=== PATIENT | male | born 1990 | race Hispanic/Latino ===

== ENCOUNTER 2019-09-09 15:50 | Emergency (ER) | payer SELFPAY ==
[2019-09-09] MEDS ORDERED: ACETAMINOPHEN EXTRA STRENGTH 500 MG TABLET ONE (16:45)
[2019-09-09] MEDS ORDERED: TETANUS/DIPHTHERIA TOXOID [ADULT] 0.5 ML VIAL IM ONE (16:46)
[2019-09-09] MEDS ORDERED: OCTYL 2-CYANOACRYLATE 1 EACH TP ONE (17:57)
== END 2019-09-09 18:15 | disposition home or self-care (01) ==
LOC: EDH 15:50
DX: S91.211A Laceration without foreign body of right great toe with damage to nail, initial encounter (principal); Z72.0 Tobacco use; W25.XXXA Contact with sharp glass, initial encounter; Y93.89 Activity, other specified; Y92.096 Garden or yard of other non-institutional residence as the place of occurrence of the external cause; Y99.8 Other external cause status
CPT/HCPCS: 12001; 73130; 90471; 90714

== ENCOUNTER 2021-08-11 20:29 | Emergency (ER) | payer BC, OTHER ==
[~2021-08-11] VITALS: Ht 172.7 cm; Wt 90.7 kg
[2021-08-11 20:33] VITALS: BP 123/82
[2021-08-11] MEDS ORDERED: SOLU-MEDROL 125MG VIAL ONE (20:46)
[2021-08-11] MEDS ORDERED: IPRATROPIUM/ALBUTEROL SULFATE 3 ML SOLUTION IH ONE (20:51)
[2021-08-11 20:59] LABS: BASOPHILS % (AUTO) 1.2 % (0.0-5.0); EOSINOPHILS % (AUTO) 2.8 % (0.0-8.0); LYMPHOCYTES % (AUTO) 46.2 % (21.0-51.0); MEAN CORPUSCULAR HEMOGLOBIN 32.8 pg (27.0-33.0); MEAN CORPUSCULAR HGB CONC 34.8 g/dL (32.0-36.0); MEAN CORPUSCULAR VOLUME 94.4 fL (79-99); MONOCYTES % (AUTO) 7.8 % (3.0-13.0); NEUTROPHILS % (AUTO) 41.9 % (40.0-77.0); PLATELET COUNT (AUTO) 248 K/uL (130-400); RED BLOOD CELL COUNT(AUTO) 4.45 MIL/uL (4.50-6.20); RED CELL DISTRIBUTION WIDTH 13.2 % (11.0-15.5); WHITE BLOOD COUNT (AUTO) 7.6 K/uL (4.8-10.8)
[2021-08-11] MEDS ORDERED: SOLU-MEDROL 125MG VIAL IVP SCH (21:00)
[2021-08-11] MEDS ORDERED: ALBUTEROL 0.083% 2.5 MG/3 ML INH IH SCH (21:00)
[2021-08-11] MEDS ORDERED: IPRATROPIUM/ALBUTEROL SULFATE 3 ML SOLUTION IH SCH (21:00)
[2021-08-11 21:07] LABS: CREATININE 0.9 mg/dL (0.5-1.5); POTASSIUM 3.5 mmol/L (3.5-5.1)
[2021-08-11 21:12] LABS: ALBUMIN 3.6 g/dL (3.5-5.0); BILIRUBIN,TOTAL 0.2 mg/dL (0.2-1.0); TOTAL PROTEIN, SERUM 7.3 g/dL (6.0-8.3)
[2021-08-11] MEDS ORDERED: CEFTRIAXONE 1G VIAL IVP ONE (21:30)
[2021-08-11] MEDS ORDERED: AZITHROMYCIN 250 MG TABLET PO ONE ×2 (21:30→21:34)
[2021-08-11] MEDS ORDERED: CEFTRIAXONE 1G VIAL ONE (21:33)
[2021-08-11] MEDS ORDERED: ALBU8.5H8 IH (21:35)
[2021-08-11] MEDS ORDERED: D-ME1POW16 PO (21:35)
[2021-08-11] MEDS ORDERED: AMOX1TAB16 PO (21:35)
== END 2021-08-11 21:46 | disposition home or self-care (01) ==
LOC: EDH 20:29
DX: J98.4 Other disorders of lung (principal); R06.00 Dyspnea, unspecified; Z20.822 Contact with and (suspected) exposure to COVID-19; J45.909 Unspecified asthma, uncomplicated; Z79.52 Long term (current) use of systemic steroids
CPT/HCPCS: 36415; 71045; 80053; 85025; 87635; 87804 ×2; 94640 ×2; 96374; 96375; 99284; C9803; J0696; J2930

== ENCOUNTER 2021-12-08 15:48 | Emergency (ER) | payer BC ==
[~2021-12-08] VITALS: Ht 172.7 cm; Wt 90.7 kg
[~2021-12-08 15:48] MED LIST: ALBU8.5H8 IH; AMOX1TAB16 PO; D-ME1POW16 PO
[2021-12-08] MEDS ORDERED: M.V.I. IV [ADULT] 10 ML, FOLIC ACID 1 MG, THIAMINE HCL 100 MG in 0.9%NACL 1000ML 1,000 ML IV SCH (16:00)
[2021-12-08] MEDS ORDERED: 0.9%NACL 1000ML 1,000 ML IV SCH (16:00)
[2021-12-08] MEDS ORDERED: THIAMINE HCL 100 MG/ML 2ML VIAL IVP SCH (16:00)
[2021-12-08] MEDS ORDERED: HYDROXYZINE 25 MG TABLET PO ONE (16:00)
[2021-12-08 16:20] LABS: BASOPHILS % (AUTO) 0.8 % (0.0-5.0); EOSINOPHILS % (AUTO) 1.8 % (0.0-8.0); HEMATOCRIT 42.4 % (42-54); LYMPHOCYTES % (AUTO) 49.1 % (21.0-51.0); MEAN CORPUSCULAR HEMOGLOBIN 32.3 pg (27.0-33.0); MEAN CORPUSCULAR HGB CONC 35.6 g/dL (32.0-36.0); MEAN CORPUSCULAR VOLUME 90.6 fL (79-99); MONOCYTES % (AUTO) 8.6 % (3.0-13.0); NEUTROPHILS % (AUTO) 39.4 % (40.0-77.0); PLATELET COUNT (AUTO) 303 K/uL (130-400); RED BLOOD CELL COUNT(AUTO) 4.68 MIL/uL (4.50-6.20); RED CELL DISTRIBUTION WIDTH 12.8 % (11.0-15.5); WHITE BLOOD COUNT (AUTO) 7.6 K/uL (4.8-10.8)
[2021-12-08 16:21] LABS: APPEARANCE,URINE CLEAR (CLEAR); BILIRUBIN,URINE NEGATIVE (NEGATIVE); COLOR,URINE YELLOW (YELLOW); GLUCOSE, URINE (UA) NEGATIVE (NEGATIVE); KETONES,URINE NEGATIVE (NEGATIVE); LEUKOCYTE ESTERASE ,URINE NEGATIVE (NEGATIVE); NITRATE,URINE NEGATIVE (NEGATIVE); OCCULT BLOOD,URINE NEGATIVE (NEGATIVE); PROTEIN,URINE NEGATIVE (NEGATIVE); UROBILINOGEN,URINE 0.2 mg/dL (0.2-1.0)
[2021-12-08 16:27] LABS: AMPHET/METH SCREEN,URINE NEGATIVE (NEGATIVE); BARBITURATE SCREEN, URINE NEGATIVE (NEGATIVE); BENZODIAZEPINES SCREEN,URINE NEGATIVE (NEGATIVE); CANNABINOID SCREEN,URINE POSITIVE (NEGATIVE); COCAINE SCREEN,URINE POSITIVE (NEGATIVE)
[2021-12-08 16:28] LABS: PHENCYCLIDINE SCREEN,URINE NEGATIVE (NEGATIVE)
[2021-12-08 16:44] LABS: ALBUMIN 3.6 g/dL (3.5-5.0); CREATININE 0.8 mg/dL (0.5-1.5); POTASSIUM 3.6 mmol/L (3.5-5.1)
[2021-12-08] MEDS ORDERED: LORAZEPAM 1 MG TABLET PO ONE (17:00)
[2021-12-08 18:09] VITALS: BP 128/67
== END 2021-12-08 18:29 | disposition home or self-care (01) ==
LOC: EDH 15:48
DX: E86.0 Dehydration (principal); F10.129 Alcohol abuse with intoxication, unspecified; F14.10 Cocaine abuse, uncomplicated; F12.10 Cannabis abuse, uncomplicated; F41.9 Anxiety disorder, unspecified; J45.909 Unspecified asthma, uncomplicated; Z79.899 Other long term (current) drug therapy; Y90.8 Blood alcohol level of 240 mg/100 ml or more
CPT/HCPCS: 99284; 96365; 96375; 84484; 80053; 80305; 85025; 36415; 81003; J7030 ×2; J3411 ×2; J3490

== ENCOUNTER 2023-09-06 09:52 | Emergency (ER) | payer OTHER, BC ==
[~2023-09-06] VITALS: Ht 175.3 cm; Wt 90.7 kg
[2023-09-06] MEDS: CYCLOBENZAPRINE HCL 10 MG TABLET PO ONE (10:23)
[2023-09-06] MEDS: KETOROLAC 60 MG VIAL (30MG/ML) IM ONE (10:24)
[2023-09-06 11:16] LABS: APPEARANCE,URINE CLEAR (CLEAR); BILIRUBIN,URINE NEGATIVE (NEGATIVE); COLOR,URINE LIGHT-YELLOW (YELLOW); GLUCOSE, URINE (UA) NEGATIVE (NEGATIVE); KETONES,URINE NEGATIVE (NEGATIVE); LEUKOCYTE ESTERASE ,URINE NEGATIVE Leu/uL (NEGATIVE); NITRATE,URINE NEGATIVE (NEGATIVE); OCCULT BLOOD,URINE NEGATIVE (NEGATIVE); PROTEIN,URINE 30 mg/dL (NEGATIVE); UROBILINOGEN,URINE 0.2 mg/dL (0.2-1.0)
[2023-09-06 11:17] LABS: ADD UA MICROSCOPIC YES
[2023-09-06 11:40] LABS: BACTERIA,URINE None Seen /HPF (None Seen); RBC,URINE None Seen /HPF (0-1); SQUAMOUS EPITHELIAL CELL,UR 0-2 /HPF (0-2); WBC,URINE None Seen /HPF (0-1)
[2023-09-06] MEDS ORDERED: IBUP-2070 PO (11:41)
[2023-09-06 11:48] VITALS: BP 139/86; PULSE 81; RESP 19; O2SAT 98
== END 2023-09-06 11:49 | disposition home or self-care (01) ==
LOC: EDH 09:52 → EEVIPCON 09:52 → EDH 11:49
DX: G89.29 Other chronic pain (principal); M54.9 Dorsalgia, unspecified; F41.9 Anxiety disorder, unspecified; J45.909 Unspecified asthma, uncomplicated; I10 Essential (primary) hypertension
CPT/HCPCS: 99284; 81001; 72110; 96372; J1885

== ENCOUNTER 2023-12-06 11:48 | Emergency (ER) | payer BC, OTHER ==
[~2023-12-06] VITALS: Ht 170.2 cm; Wt 90.7 kg
[~2023-12-06 11:48] MED LIST changes: +IBUP-2070 PO
[2023-12-06 13:37] VITALS: BP 147/72; PULSE 89; RESP 16; TEMP 97.9; O2SAT 99
== END 2023-12-06 13:43 | disposition home or self-care (01) ==
LOC: EDH 11:48
DX: S00.432A Contusion of left ear, initial encounter (principal); J45.909 Unspecified asthma, uncomplicated; I10 Essential (primary) hypertension; F41.9 Anxiety disorder, unspecified; F17.200 Nicotine dependence, unspecified, uncomplicated; Z79.899 Other long term (current) drug therapy; Z98.890 Other specified postprocedural states; W50.0XXA Accidental hit or strike by another person, initial encounter; Y93.89 Activity, other specified; Y92.89 Other specified places as the place of occurrence of the external cause; Y99.8 Other external cause status
CPT/HCPCS: 70450